=== PATIENT | male | born 1950 | race Caucasian/White ===

== ENCOUNTER → 2020-08-31 07:59 | Outpatient (CLI) | payer OTHER, SELFPAY ==
--- NOTE | ~2020-08-31 | MMUS_ITS ---
EXAMINATION: MM diagnostic mammo BI, US breast BI complete HISTORY: Breast tenderness. TECHNIQUE: Additional 3-D tomosynthesis images of the breasts were performed and synthetic 2-D images were generated. CAD analysis was submitted and interpreted. High resolution bilateral complete breas t ultrasound was performed. COMPARISON: None BREAST PARENCHYMAL COMPOSITION: Breast composed of scattered areas of fibroglandular density. FINDINGS: MAMMOGRAPHIC FINDINGS: There is bilateral gynecomastia. No suspicious masses, calcifications or architectural distortion. ULTRASOUND: Bilateral breast ultrasound: There is hypoechoic soft tissue in the subareolar location bilaterally, consistent with breast buds. No suspicious masses to suggest malignancy. IMPRESSION: 1. Bilateral symmetric gynecomastia. No evidence for malignancy. 2. Recommend follow-up clinical management for gynecomastia. BI-RADS Category 2: Benign finding(s). Reviewed, dictated and finalized at location A. [facility] IMPRESSION: 1. Bilateral symmetric gynecomastia. No evidence for malignancy. 2. Recommend follow-up clinical management for gynecomastia. BI-RADS Category 2: Benign finding(s).
== END ==
PROVIDERS: PCP Internal Medicine; Visit Provider Internal Medicine
DX: N64.4 Mastodynia (principal)
CPT/HCPCS: 76641; 77066

== ENCOUNTER → 2020-10-03 00:20 | Outpatient (CLI) | payer OTHER, SELFPAY ==
[2020-10-03 19:29] LABS: SARS-CoV-2 RNA PCR Negative
== END ==
PROVIDERS: PCP Internal Medicine; Visit Provider Internal Medicine Gastroenterology
DX: Z01.812 Encounter for preprocedural laboratory examination (principal); Z20.822 Contact with and (suspected) exposure to COVID-19
CPT/HCPCS: C9803; U0003; U0005

== ENCOUNTER 2020-10-06 01:11 | Day surgery (SDC) | payer OTHER, SELFPAY ==
[2020-09-27 09:49] VITALS: BMI 25.0
[2020-10-06 08:24] VITALS: BP 112/70; PULSE 81; RESP 18; TEMP 36.5; O2SAT 100; BMI 24.6
[2020-10-06] MEDS: LACTATED RINGERS 1,000 ML 150 ML IV CONT (08:37)
--- NOTE | 2020-10-06 09:35 | P.CONGI_ITS ---
GI Consult Note Consult date/time: 10/06/20 09:35 HPI: Reason for visit is colonoscopy. This very pleasant gentleman seen at the request of the primary physician. Impression: Screening colonoscopy. The patient has a family history colon cancer. Atrial fibrillation. Status post ablation x3. BPH. Recommendation: Colonoscopy. History: This very pleasant gentleman is negative GI review systems. He has a family history of colorectal cancer. He is here for colonoscopy. Physical examination: General: very pleasant patient in no acute distress. HEENT: Head was normocephalic sclerae is clear mouth without masses neck was supple. Heart: Rate rhythm regular without S3 or S4. Lungs: CTA. Abdomen: Soft with no guarding or rigidity. Bowel sounds were active. Neurologic: Cranial nerves 2 through 12 intact. No focal defects. No clonus. Musculoskeletal system: Revealed no joint tenderness or swelling no muscle atrophy. Extremities: Reveal no significant edema. Skin: Warm and dry with normal turgor. Mental status: intact. Patient is alert and oriented. Review of Systems Review of Systems: All systems reviewed & are unremarkable except as noted in HPI and below [facility] Past Medical History Medical History (Updated 08/10/20 @ 08:47 by Orlando Ortiz MD) A-fib Mitral regurgitation Mitral valve prolapse Surgical History Surgical History History of radiofrequency ablation (RFA) procedure for cardiac arrhythmia Family History Family History Mother Cerebrovascular accident Father Carcinoma of colon Family history of lung cancer Sibling Family history of atrial fibrillation 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 Smoking packs per day: 1 Smoking cigarettes per day: 20.0 Years smoked: 3 Smoking pack-years: 3.00 Smoking status: Former smoker Tobacco type: cigarettes Alcohol intake: never Substance use: never Substance use type: does not use Living arrangements: with family Gender identity (if verbalized by the patient): Male Spiritual care concerns: No Agree to blood products: Yes Meds Home Medications and Allergies Home Medications Medication Instructions Recorded Confirmed Type Xarelto 20 mg PO DAILY #30 tablet 06/11/19 10/06/20 Rx tamsulosin 0.4 mg PO 1700 06/11/19 10/06/20 History metoprolol tartrate 25 mg tablet 25 mg PO BID 08/10/20 09/27/20 History Allergies Allergy/AdvReac Type Severity Reaction Status Date / Time No Known Allergies Allergy Verified 10/06/20 08:22 Vital Signs Vital Signs - 24 hr 10/06/20 08:24 Temperature 36.5 C Pulse Rate 81 Respiratory Rate 18 Blood Pressure 112/70 Pulse Oximetry 100
--- NOTE | 2020-10-06 09:43 | P.PNAN_ITS ---
Anes - Initial Pre Proc Eval Procedure: Operation Date: 10/06/20 09:30 Proposed Procedures p Screening Colonoscopy - Sunil Hopkins DO Date/Time: 10/06/20 09:43 Surgeon: Sunil Hopkins DO Pre Op Diagnosis: Neoplasm Screening Patient Data Age: 70 Gender: M Height: 6 ft 1 in Weight: 84.7 kg Last Vital Signs Temp 97.7 F 10/06/20 08:24 Pulse 81 10/06/20 08:24 Resp 18 10/06/20 08:24 BP 112/70 10/06/20 08:24 Pulse Ox 100 10/06/20 08:24 Allergies Allergy/AdvReac Type Severity Reaction Status Date / Time No Known Allergies Allergy Verified 10/06/20 08:22 Home Medications Medication Instructions Recorded Confirmed Type Xarelto 20 mg PO DAILY #30 tablet 06/11/19 10/06/20 Rx tamsulosin 0.4 mg PO 1700 06/11/19 10/06/20 History metoprolol tartrate 25 mg tablet 25 mg PO BID 08/10/20 09/27/20 History Patient hx anesthesia problems: none Family hx anesthesia problems: none [facility] Past Medical History Medical History (Updated 08/10/20 @ 08:47 by Orlando Ortiz MD) A-fib Mitral regurgitation Mitral valve prolapse Surgical History Surgical History History of radiofrequency ablation (RFA) procedure for cardiac arrhythmia Family History Family History Mother Cerebrovascular accident Father Carcinoma of colon Family history of lung cancer Sibling Family history of atrial fibrillation 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 Smoking packs per day: 1 Smoking cigarettes per day: 20.0 Years smoked: 3 Smoking pack-years: 3.00 Smoking status: Former smoker Tobacco type: cigarettes Alcohol intake: never Substance use: never Substance use type: does not use Living arrangements: with family Gender identity (if verbalized by the patient): Male Spiritual care concerns: No Agree to blood products: Yes Anes - Eval Final PreProcedure Day of Procedure 10/06/20 09:43 Patient weight: normal Heart: regular rate and rhythm Lungs: clear to auscultation Airway: Mallampati scale class II Neurological: alert and oriented Last oral intake: >/= 8 hours ASA classification: III Emergent: no Anesthetic plan: proceed Anesthesia type and monitoring: general GIVS and standard monitoring Informed Consent: The patient's anesthetic plan and its attendant risks and benefits were discussed with the patient/family/POA. Questions were solicited and answers provided to the satisfaction of the patient/family/POA.
[2020-10-06 10:13] VITALS: BP 96/55; PULSE 76; RESP 19; O2SAT 100
[2020-10-06 10:23] VITALS: BP 91/53; PULSE 73; RESP 21; O2SAT 99
[2020-10-06 10:33] VITALS: BP 98/60; PULSE 73; RESP 22; O2SAT 100
== END 2020-10-06 10:51 | disposition home or self-care (01) ==
PROVIDERS: PCP Internal Medicine; Visit Provider Internal Medicine Gastroenterology
PROC: 0DJD8ZZ Inspection of Lower Intestinal Tract, Via Natural or Artificial Opening Endoscopic (ICD-10-PCS; CPT 45378; principal; 2020-10-06 09:30)
DX: Z12.11 Encounter for screening for malignant neoplasm of colon (principal); D12.4 Benign neoplasm of descending colon; K57.30 Diverticulosis of large intestine without perforation or abscess without bleeding; I48.20 Chronic atrial fibrillation, unspecified; I34.0 Nonrheumatic mitral (valve) insufficiency; I34.1 Nonrheumatic mitral (valve) prolapse; Z87.891 Personal history of nicotine dependence; N40.0 Benign prostatic hyperplasia without lower urinary tract symptoms; Z80.0 Family history of malignant neoplasm of digestive organs; Z79.02 Long term (current) use of antithrombotics/antiplatelets
CPT/HCPCS: 45380; 88305; C9803; J2704; J7120; U0003; U0005

== ENCOUNTER 2020-11-23 11:58 | Day surgery (SDC) | payer MEDICARE, OTHER, SELFPAY ==
[2020-11-23] VITALS (10 sets, daily range): BP systolic 92–116; BP diastolic 69–90; PULSE 85–152; RESP 16–20; TEMP 36.5; O2SAT 97–100; BMI 25.2
--- NOTE | 2020-11-23 12:26 | ECG_ITS ---
Measurements Intervals [place] Rate: 156 P: IA: 0 QRS: -35 QRSD: 86 T: 73 QT: 274 QTc: 442 Interpretive Statements ATRIAL FIBRILLATION WITH RAPID VENTRICULAR RESPONSE LEFT AXIS DEVIATION BORDERLINE ST ABNORMALITY- ANTERIOR LEADS ABNORMAL ECG Electronically Signed On 11-23-2020 12:48:13 CDT by Zachariah Be D.O.
[2020-11-23 13:00] LABS: Anion Gap 6 mmol/L (8-16); Blood Urea Nitrogen 17 mg/dL (9-20); Calcium 9.1 mg/dL (8.4-10.2); Carbon Dioxide 26 mmol/L (22-30); Chloride 106 mmol/L (98-107); Estimated Glomerular Filt Rate > 60; Glucose 104 mg/dL (75-110); Magnesium 1.9 mg/dL (1.6-2.3); Potassium 4.4 mmol/L (3.4-5.0); Sodium 138 mmol/L (137-145)
--- NOTE | 2020-11-23 13:10 | ECG_ITS ---
Measurements Intervals [place] Rate: 89 P: 78 CT: 235 QRS: -27 QRSD: 94 T: 39 QT: 364 QTc: 445 Interpretive Statements SINUS RHYTHM WITH FIRST DEGREE AV BLOCK BORDERLINE R WAVE PROGRESSION, ANTERIOR LEADS ABNORMAL ECG Electronically Signed On 11-23-2020 14:12:28 CDT by Zachariah Be D.O.
--- NOTE | 2020-11-23 13:30 | PM.IMHP ---
H&P: HPI History of Present Illness Date/Time: 11/23/20 13:30 Chief Complaint: Recurrent AFib RVR, here for cardioversion Narrative: Mr. Chris Reeves this 70-year-old white male followed by Dr. Cortez and Dr. Mendez for his longstanding paroxysmal atrial fibrillation and flutter. Around 10:00 p.m. on Saturday night he felt that he was back in atrial fibrillation. He started his Xarelto Saturday morning and took another dose Saturday night. He came in today for an EKG and indeed he was in AFib with a heart rate of 154. He is here for an elective electrical cardioversion. The patient has had AFib with his 1st cardioversion age 30. He has had 10 or 15 cardioversions and 3 ablations. His last one I believe was on March 2020 and he has done well since. He feels a little breathless with activity but is not having chest pain or dizziness. He ate breakfast around 730 but has been NPO since then. He has not had any particular problems with his past cardioversions. Heart rate otherwise is usually normal or perhaps mildly bradycardic. He has increased his metoprolol 25 mg b.i.d. to 50 mg b.i.d. Review of Systems Constitutional: Constitutional: Denies weakness ENT: Denies epistaxis Cardiovascular: Cardiovascular: Denies chest pain, Denies pedal edema, Denies lightheadedness and Reports palpitations Respiratory: Respiratory: Denies dyspnea and Reports dyspnea on exertion Gastrointestinal: Gastrointestinal: Denies abdominal pain Genitourinary: Genitourinary: Reports no additional male genitourinary complaints Musculoskeletal: Musculoskeletal: Reports no additional musculoskeletal complaints Integumentary/Breasts: Skin/Breast: Denies rash Neurologic: Reports system reviewed and no additional complaints, except as documented Psychiatric: Psychiatric: Reports no additional psychiatric complaints [facility] Past Medical History Medical History (Updated 11/23/20 @ 13:35 by Rosario King MD) A-fib Mitral regurgitation Mitral valve prolapse Surgical History Surgical History History of radiofrequency ablation (RFA) procedure for cardiac arrhythmia Family History Family History Mother Cerebrovascular accident Father Carcinoma of colon Family history of lung cancer Sibling Family history of atrial fibrillation 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 (Updated 11/23/20 @ 13:34 by Rosario King MD) 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: , 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 Smoking packs per day: 1 Smoking cigarettes per day: 20.0 Years smoked: 3 Smoking pack-years: 3.00 Smoking status: Former smoker Tobacco type: cigarettes Alcohol intake: never Substance use: never Substance use type: does not use Gender identity (if verbalized by the patient): Male Spiritual care concerns: No Agree to blood products: Yes Meds Home Medications and Allergies Home Medications Medication Instructions Recorded Confirmed Type Xarelto 20 mg PO DAILY #30 tablet 06/11/19 11/23/20 Rx tamsulosin 0.4 mg PO 1700 06/11/19 11/23/20 History metoprolol tartrate 25 mg tablet 25 mg PO BID 08/10/20 11/23/20 History Allergies Allergy/AdvReac Type Severity Reaction Status Date / Time No Known Allergies Allergy Verified 10/06/20 08:22 Vital Signs Vital Signs - 24 hr 11/23/20 12:45 Temperature 97.7 F Pulse Rate 147 H Respiratory Rate 18 Blood Pressure 106/90 Pulse Oximetry 99 Exam Const: General: comfortable and no acute distress HENMT: Mouth: Yes moist mucous membranes Other: Dentition in good repair Eyes: EOM: EOMs intact bilaterally Neck: Neck: supple and no JVD Resp: Effort & Inspection: normal respiratory effort Auscultation: clear to auscultation bilaterally Cardio: Rate: tachycardic Rhythm: abnormal rhythm irregularly irregular GI: GI Palp: Yes Soft to palpation and No Tendern
--- NOTE | 2020-11-23 13:38 | WPDMODSED ---
Moderate Sedation Note-Pt Data Patient Data Diagnosis: Recurrent atrial fibrillation with rapid ventricular response History of PAF, multiple cardioversions, paroxysmal atrial flutter, and atrial arrhythmia ablation says usually followed by Dr. Cortez and Dr. Mendez. Present Complaint: AFib RVR, symptomatic Procedure to be performed/Plan: Conscious sedation Elective electrical cardioversion Allergies Allergy/AdvReac Type Severity Reaction Status Date / Time No Known Allergies Allergy Verified 10/06/20 08:22 Home Medications Medication Instructions Recorded Confirmed Type Xarelto 20 mg PO DAILY #30 tablet 06/11/19 11/23/20 Rx tamsulosin 0.4 mg PO 1700 06/11/19 11/23/20 History metoprolol tartrate 25 mg tablet 25 mg PO BID 08/10/20 11/23/20 History Current Medications: Active Medications Sodium Chloride (Normal Saline Iv) 1,000 mls @ 30 mls/hr IV CONT .Q24H GIL Sedation/Anesthesia: No previous sedation/anesthesia problems (including family history). 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 Smoking packs per day: 1 Smoking cigarettes per day: 20.0 Years smoked: 3 Smoking pack-years: 3.00 Smoking status: Former smoker Tobacco type: cigarettes Alcohol intake: never Substance use: never Substance use type: does not use Gender identity (if verbalized by the patient): Male Spiritual care concerns: No Agree to blood products: Yes Mod Sed Physical Exam Physical Exam Pre Procedural Exam: Normal: Appearance, Eyes, Ears, Nose, Neck, Throat, Airway, Lungs, Heart Size, Neuro Exam, Abdomen, Extremities and Skin and Variation: Heart Rate (Tachycardic) and Heart Rhythm (Irregular) Hours since solid foods: 6 Hours since liquid intake: 6 Internal Medicine - PN: Obj Da Vital Signs Vital Signs: Vital Signs - 24 hr 11/23/20 12:45 Temperature 97.7 F Pulse Rate 147 H Respiratory Rate 18 Blood Pressure 106/90 Pulse Oximetry 99 Meds/Results Medications: Active Medications Generic Name Dose Route Start Last Admin Trade Name Freq PRN Reason Stop Dose Admin Sodium Chloride 1,000 mls @ 30 mls/hr 11/23/20 12:30 Normal Saline Iv IV CONT .Q24H GIL Labs CBC & Chem 7: 11/23/20 12:45 Labs: Laboratory Results - last 24 hr 11/23/20 12:45 Sodium 138 Potassium 4.4 Chloride 106 Carbon Dioxide 26 Anion Gap 6 L BUN 17 Creatinine 0.90 Estim Creat Clear Calc Not Reportable Estimated GFR > 60 Glucose 104 Calcium 9.1 Magnesium 1.9 ASA Classification/Sedation ASA Classification/Sedation ASA Class: II Emergent: No Risks: Risks, benefits and alternatives explained and patient/family accepted plan for sedation. Patient re-evaluated immediately prior to sedation.
--- NOTE | 2020-11-23 13:56 | PM.OP ---
Procedure Note - Brief Procedure Note - Brief Date of procedure: 11/23/20 Pre-op diagnosis: atrial-fib Post-op diagnosis: same Description of procedure: Successful cardioversion to NSR HR 80's Surgeon: Rosario King MD Complications: No immediate complications Condition: stable Disposition: observation
--- NOTE | 2020-11-23 13:57 | PM.PROC ---
Procedure Note - Detailed Date of procedure: 11/23/20 Pre-op diagnosis: atrial-fib 70-year-old male with a very long history of paroxysmal atrial fibrillation and atrial flutter, status post 10-15 cardioversion is and about 3 ablation. Patient went back and atrial fibrillation on Saturday and started his Xarelto. He remains in AFib RVR and is here for elective electrical cardioversion. Post-op diagnosis: same Procedure performed: Elective electrical cardioversion Description of procedure: Conscious sedation: Assessment: The patient has no history of anesthesia problems. The patient's oropharynx is clear. The patient was deemed to be a good candidate for conscious sedation. The patient had continuous hemodynamic monitoring during the procedure. Start time: 1343 Completion time: 1354 Total conscious sedation time: 11 minutes Medications: Versed 4 mg, fentanyl 100 mcg IV push Trained observer: Paulette Palomares RN Outcome: The patient tolerated the procedure well with no complications. Cardioversion: After informed consent and the above conscious sedation, the patient underwent elective electrical synchronized cardioversion with 200 joules of biphasic energy and converted to normal sinus rhythm, heart rate in the 80s. There were no complications. Anesthesia: other (Consious sedation) Surgeon: Rosario King MD Complications: No immediate complications Condition: stable Disposition: observation Findings: Recommend at least 1 month of Xarelto, probably longer. Follow-up with Dr. Mendez and Dr. Cortez.
--- NOTE | 2020-11-23 14:59 | PC.NURSE ---
1500 - IV d/c'd from left forearm, catheter intact. Taking po food and fluids without nausea or vomiting. Discharge instructions reviewed with patient and with stated understanding. Pt to be discharged via wheelchair to personal vehicle with driving.
== END 2020-11-23 15:10 | disposition home or self-care (01) ==
PROVIDERS: PCP Internal Medicine; Visit Provider Internal Medicine Cardiovascular Disease
PROC: 5A2204Z Restoration of Cardiac Rhythm, Single (ICD-10-PCS; principal; 2020-11-23 13:00)
DX: I48.0 Paroxysmal atrial fibrillation (principal); I34.0 Nonrheumatic mitral (valve) insufficiency; I34.1 Nonrheumatic mitral (valve) prolapse; Z79.01 Long term (current) use of anticoagulants; Z87.891 Personal history of nicotine dependence
CPT/HCPCS: 36415; 80048; 83735; 92960; 93005; J2250; J3010; J7040

== ENCOUNTER 2023-05-22 03:23 | Day surgery (SDC) | payer MEDICARE, SELFPAY ==
[2023-05-21 16:39] VITALS: BMI 25.1
[2023-05-22] VITALS (13 sets, daily range): BP systolic 80–141; BP diastolic 57–100; PULSE 67–141; RESP 14–20; TEMP 36.2; O2SAT 100; BMI 25.9
--- NOTE | 2023-05-22 07:00 | ECG_ITS ---
Measurements Intervals [place] Rate: 77 P: 75 DC: 258 QRS: -34 QRSD: 99 T: 39 QT: 375 QTc: 425 Interpretive Statements SINUS RHYTHM WITH FIRST DEGREE AV BLOCK LEFT AXIS DEVIATION CANNOT RULE OUT SEPTAL INFARCT, AGE INDETERMINATE INFERIOR INFARCT, AGE INDETERMINATE ABNORMAL ECG COMPARED TO ECG 05/22/2023 07:28:07 SINUS RHYTHM NOW PRESENT FIRST DEGREE AV BLOCK NOW PRESENT Electronically Signed On 05-22-2023 10:39:33 [employer] by Zachariah Be D.O.
[2023-05-22 07:57] LABS: Anion Gap 9 mmol/L (8-16); Blood Urea Nitrogen 27 mg/dL (9-20); Calcium 9.1 mg/dL (8.4-10.2); Carbon Dioxide 27 mmol/L (22-30); Chloride 103 mmol/L (98-107); Estimated CRCL calculation 63 ml/min; Estimated Glomerular Filt Rate > 60; Glucose 99 mg/dL (65-110); Magnesium 2.2 mg/dL (1.6-2.3); Potassium 4.7 mmol/L (3.4-5.0); Sodium 139 mmol/L (137-145)
--- NOTE | 2023-05-22 08:30 | ECG_ITS ---
Measurements Intervals [place] Rate: 92 P: ME: 0 QRS: -33 QRSD: 105 T: 45 QT: 354 QTc: 440 Interpretive Statements ECTOPIC ATRIAL RHYTHM FREQUENT ATRIAL PREMATURE COMPLEXES LEFT AXIS DEVIATION CONSIDER INFERIOR INFARCT, AGE INDETERMINATE BASELINE ARTIFACT- I, II, AVR ABNORMAL ECG COMPARED TO ECG 11/23/2020 13:59:04 ECTOPIC ATRIAL RHYTHM NOW PRESENT LEFT-AXIS DEVIATION NOW PRESENT Electronically Signed On 05-22-2023 8:16:30 REVIVAL CLERK by Zachariah Be D.O.
--- NOTE | 2023-05-22 09:18 | PM.IMHP ---
H&P: HPI History of Present Illness Date/Time: 05/22/23 09:18 Chief Complaint: Atrial fibrillation Narrative: 72-year-old with atrial fibrillation. Has no chest pain but is here today for outpatient elective cardioversion Review of Systems Review of Systems: All systems reviewed & are unremarkable except as noted in HPI and below Cardiovascular: Cardiovascular: Denies chest pain Respiratory: Respiratory: Denies dyspnea Gastrointestinal: Gastrointestinal: Denies abdominal pain and Denies nausea PMFSH Past Medical History Medical History A-fib Breast enlargement Lyme disease with erythema migrans lesion 5 cm or greater in diameter Mitral regurgitation Mitral valve prolapse Nipple pain Surgical History Surgical History History of radiofrequency ablation (RFA) procedure for cardiac arrhythmia Family History Family History Mother Cerebrovascular accident Father Carcinoma of colon Family history of lung cancer Sibling Family history of atrial fibrillation 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: , 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 Smoking packs per day: 1 Smoking cigarettes per day: 20.0 Years smoked: 3 Smoking pack-years: 3.00 Smoking status: Never smoker Tobacco type: cigarettes Smoking end date: 07/20/79 Alcohol intake: current Drinks per week: 7 Alcohol use details: social Substance use: current Substance use type: does not use Lack of Transportation: No Lack of Food: Never True Current Housing: I Have Housing Concerned About Future Housing: No Difficulty Paying Gas/Electric Bills: No Difficulty Paying for Meds: No Currently Unemployed: No Education: Master's Degree or Higher Difficulty w/ Childcare or Family Care: No Living arrangements: alone Gender identity (if verbalized by the patient): Male Spiritual care concerns: No Agree to blood products: Yes Meds Home Medications and Allergies Home Medications Medication Instructions Recorded Confirmed Type metoprolol tartrate 25 mg tablet 50 mg PO BID #120 tabs 11/23/20 05/22/23 Rx tamsulosin 0.4 mg capsule 0.8 mg PO 1700 12/08/20 05/22/23 History rivaroxaban 20 mg tablet (Xarelto) 20 mg PO DAILY 05/22/23 05/22/23 History Allergies Allergy/AdvReac Type Severity Reaction Status Date / Time No Known Allergies Allergy Verified 05/22/23 07:19 Vital Signs Vital Signs - 24 hr 05/22/23 07:39 Temperature 36.2 C L Pulse Rate 93 Respiratory Rate 20 Blood Pressure 113/62 Pulse Oximetry 100 Oxygen Delivery Room Air Exam Narrative: Awake alert oriented Const: General: comfortable HENMT: Face/Nose/Sinus: Normal nares present Eyes: Sclera: sclerae normal Neck: Neck: supple and no JVD Chest: Other: No reproducible chest wall pain to palpation Resp: Effort & Inspection: normal respiratory effort Cardio: Rate: regular rate Rhythm: abnormal rhythm irregularly irregular GI: GI Palp: Yes Soft to palpation Skin: General skin exam: normal color Neuro: Speech: normal speech Extrem: General: normal to inspection Psych: Mental Status: mental status grossly normal H&P: Results Labs Labs: [facility] 05/22/23 07:34 Sodium 139 Potassium 4.7 Chloride 103 Carbon Dioxide 27 BUN 27 H D Creatinine 1.10 Glucose 99 Calcium 9.1 Assessment and Plan Assessment and plan (1) A-fib: Qualifiers: Atrial fibrillation type: paroxysmal Qualified Code(s): I48.0 - Paroxysmal atrial fibrillation Code(s): I48.91 - Unspecified atrial fibrillation Status: Acute Assessment and Plan: Plan for outpatient elective cardioversion with CARLOZ
--- NOTE | 2023-05-22 09:20 | WPDMODSED ---
Moderate Sedation Note-Pt Data Patient Data Diagnosis: Atrial fibrillation Present Complaint: Atrial fibrillation Procedure to be performed/Plan: 1. Multiplanar transesophageal echocardiography with pulse wave and color-flow Doppler 2. moderate sedation 3. elective electrical cardioversion Allergies Allergy/AdvReac Type Severity Reaction Status Date / Time No Known Allergies Allergy Verified 05/22/23 07:19 Home Medications Medication Instructions Recorded Confirmed Type metoprolol tartrate 25 mg tablet 50 mg PO BID #120 tabs 11/23/20 05/22/23 Rx tamsulosin 0.4 mg capsule 0.8 mg PO 1700 12/08/20 05/22/23 History rivaroxaban 20 mg tablet (Xarelto) 20 mg PO DAILY 05/22/23 05/22/23 History Current Medications: Active Medications Sodium Chloride (Normal Saline Iv) 1,000 mls @ 30 mls/hr IV CONT .Q24H GIL Sedation/Anesthesia: No previous sedation/anesthesia problems (including family history). 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 Smoking packs per day: 1 Smoking cigarettes per day: 20.0 Years smoked: 3 Smoking pack-years: 3.00 Smoking status: Never smoker Tobacco type: cigarettes Smoking end date: 07/20/79 Alcohol intake: current Drinks per week: 7 Alcohol use details: social Substance use: current Substance use type: does not use Lack of Transportation: No Lack of Food: Never True Current Housing: I Have Housing Concerned About Future Housing: No Difficulty Paying Gas/Electric Bills: No Difficulty Paying for Meds: No Currently Unemployed: No Education: Master's Degree or Higher Difficulty w/ Childcare or Family Care: No Living arrangements: alone Gender identity (if verbalized by the patient): Male Spiritual care concerns: No Agree to blood products: Yes Mod Sed Physical Exam Physical Exam Pre Procedural Exam: Normal: Appearance, Eyes, Ears, Nose, Neck, Throat, Airway, Lungs, Heart Size, Heart Rate, Neuro Exam, Abdomen, Extremities and Skin and Variation: Heart Rhythm (Irregular irregular) Hours since solid foods: 12 Hours since liquid intake: 12 Mallampati Classification: class II Internal Medicine - PN: Obj Da Vital Signs Vital Signs: Vital Signs - 24 hr 05/22/23 07:39 Temperature 36.2 C L Pulse Rate 93 Respiratory Rate 20 Blood Pressure 113/62 Pulse Oximetry 100 Oxygen Delivery Room Air Meds/Results Medications: Active Medications Generic Name Dose Route Start Last Admin Trade Name Freq PRN Reason Stop Dose Admin Sodium Chloride 1,000 mls @ 30 mls/hr 05/22/23 07:00 Normal Saline Iv IV CONT .Q24H GIL Labs 05/22/23 07:34 Labs: Laboratory Results - last 24 hr 05/22/23 07:34 Sodium 139 Potassium 4.7 Chloride 103 Carbon Dioxide 27 Anion Gap 9 BUN 27 H D Creatinine 1.10 Estim Creat Clear Calc 63 Estimated GFR > 60 Glucose 99 Calcium 9.1 Magnesium 2.2 ASA Classification/Sedation ASA Classification/Sedation ASA Class: II Emergent: No Risks: Risks, benefits and alternatives explained and patient/family accepted plan for sedation. Patient re-evaluated immediately prior to sedation.
--- NOTE | 2023-05-22 09:44 | WPDTECDV ---
CARLOZ with Cardioversion Date of procedure: 05/22/23 Procedure Type: 1. Multiplanar transesophageal echocardiography with color flow and pulse wave Doppler 2. Electrical cardioversion 3. Moderate sedation Diagnosis: Atrial fibrillation Indications: Atrial fibrillation Description of Procedure: After discussing the risks, benefits alternatives of the procedure the patient agreeable via verbal and written informed consent. Risks discussed included esophageal rupture perforation, need for surgery, , bleeding, pain, infection, adverse reaction to anesthesia, stroke, skin irritation or burn, shocking into more problematic heart rhythm. After establishing continuous telemetry monitoring, pulse oxygenation and serial blood pressure assessments time-out was taken the procedure was started Procedure start time 9:25 a.m. Procedure stop time 9:44 a.m. Medications used: Lidocaine spray to the hypopharynx x2 for topical anesthetic. A total of 5 mg of Versed and 125 mcg of fentanyl given in divided dosages Medications were administered and patient was monitored by Isreal Ruiz RN Complications: None Blood loss: None Sedation: As detailed above Findings: CARLOZ: Normal left ventricular size and function ejection fraction of 65%. Mild LVH. Moderate to severe left atrial enlargement. Left atrial appendage is free of mass or thrombus. Pulse wave velocities are estimated between 75 and 100 cm/s. No pericardial effusion. Aortic root measured 3.1 cm. Atrial septum was intact without color flow evidence of shunting. Mild tricuspid regurgitation but with a normal valve. There is moderate mitral regurgitation. Mitral valve appears normal. The pulmonic valve is normal with trivial pulmonic insufficiency. The aortic valve is trileaflet minimally sclerotic. No significant aortic insufficiency. Normal right ventricular size and function. Normal right atrial size. Electrical cardioversion: Atrial fibrillation was confirmed 150 joules of biphasic synchronized energy was utilized to restore sinus rhythm from AFib. Conclusion: 1. Normal left ventricular size and function ejection fraction 65%, mild left ventricle hypertrophy. 2. Moderate to severe left atrial enlargement 3. Left atrial appendage is normal without mass or thrombus 4. Ihqm-dj-jzzmpsck mitral regurgitation 5. Mild tricuspid regurgitation 6. Successful bahai of sinus rhythm from atrial fibrillation use 150 joules of biphasic synchronized energy 7. Moderate sedation
== END 2023-05-22 11:31 | disposition home or self-care (01) ==
PROVIDERS: PCP Internal Medicine; Visit Provider Internal Medicine Cardiovascular Disease
PROC: (CPT 93312; principal; 2023-05-22 08:30)
PROC: 5A2204Z Restoration of Cardiac Rhythm, Single (ICD-10-PCS; 2023-05-22 08:30)
DX: I48.0 Paroxysmal atrial fibrillation (principal); I44.0 Atrioventricular block, first degree; I34.0 Nonrheumatic mitral (valve) insufficiency; I07.1 Rheumatic tricuspid insufficiency; R94.31 Abnormal electrocardiogram [ECG] [EKG]; R93.1 Abnormal findings on diagnostic imaging of heart and coronary circulation; F17.210 Nicotine dependence, cigarettes, uncomplicated; Z79.01 Long term (current) use of anticoagulants; Z86.79 Personal history of other diseases of the circulatory system; Z82.49 Family history of ischemic heart disease and other diseases of the circulatory system; Z80.1 Family history of malignant neoplasm of trachea, bronchus and lung; Z80.0 Family history of malignant neoplasm of digestive organs
CPT/HCPCS: 36415; 80048; 83735; 92960; 93312; 93320; 93325; J2250; J3010; J7030

== ENCOUNTER 2024-05-04 01:33 | Day surgery (SDC) | payer MEDICARE, SELFPAY ==
[2024-05-01 17:12] VITALS: BMI 25.1
[2024-05-04] VITALS (7 sets, daily range): BP systolic 103–123; BP diastolic 68–83; PULSE 67–111; RESP 14–20; TEMP 36.4; O2SAT 97–100
--- NOTE | 2024-05-04 07:00 | ECG_ITS ---
Test Date: 2024-05-04 07:20:09 Measurements Intervals [place] Rate: 100 P: 0 [place]: 0 QRS: -32 QRSD: 85 T: 58 QT: 344 QTc: 444 Interpretive Statements ATRIAL FIBRILLATION WITH RAPID VENTRICULAR RESPONSE LEFT AXIS DEVIATION CONSIDER INFERIOR INFARCT, AGE INDETERMINATE ABNORMAL ECG No previous ECG available for comparison Electronically Signed On 05-04-2024 08:12:05 GRAIN BU[employer]ER by Zachariah Be D.O.
[2024-05-04 08:14] LABS: Anion Gap 9 mmol/L (4-12); Blood Urea Nitrogen 21 mg/dL (9-20); Calcium 9.2 mg/dL (8.4-10.2); Carbon Dioxide 25 mmol/L (22-30); Chloride 104 mmol/L (98-107); Estimated CRCL calculation 68 ml/min; Estimated Glomerular Filt Rate > 60; Glucose 102 mg/dL (65-110); Magnesium 2.1 mg/dL (1.6-2.3); Potassium 4.5 mmol/L (3.4-5.0); Sodium 138 mmol/L (137-145)
--- NOTE | 2024-05-04 08:28 | P.SEDATION_ITS ---
Moderate Sedation Note-Pt Data Patient Data Allergies Allergy/AdvReac Type Severity Reaction Status Date / Time No Known Allergies Allergy Verified 05/01/24 17:08 Home Medications Medication Instructions Recorded Confirmed Type tamsulosin 0.4 mg capsule 0.8 mg PO 1700 12/08/20 05/01/24 History metoprolol tartrate 50 mg tablet 75 mg PO BID #45 tabs 07/17/23 05/01/24 Rx rivaroxaban 20 mg tablet (Xarelto) 20 mg PO DAILY 07/17/23 05/01/24 History Sedation/Anesthesia: No previous sedation/anesthesia problems (including family history). 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 Smoking packs per day: 0.5 Smoking cigarettes per day: 10.0 Years smoked: 7.6 Smoking pack-years: 3.80 Smoking status: Former smoker Tobacco type: cigarettes Second hand tobacco smoke exposure: No Smoking end date: 07/01/78 Alcohol intake: current Drinks per week: 7 Alcohol use details: SOCIAL Substance use: never Substance use type: does not use Lack of Transportation: No Lack of Food: Never True Current Housing: I Have Housing Concerned About Future Housing: No Difficulty Paying Gas/Electric Bills: No Difficulty Paying for Meds: No Currently Unemployed: No Education: Master's Degree or Higher Difficulty w/ Childcare or Family Care: No Living arrangements: with family Additional living arrangements comments: LIVES W/ , [place] Gender identity (if verbalized by the patient): Male Sexual Orientation (if Verbalized by the Patient): Straight or Heterosexual Spiritual care concerns: No Agree to blood products: Yes Mod Sed Physical Exam Physical Exam Pre Procedural Exam: Normal: Appearance and Eyes and Variation: Heart Rhythm (atrial fibrillation) Hours since solid foods: 10 Hours since liquid intake: 10 Mallampati Classification: class II Internal Medicine - PN: Obj Da Vital Signs Vital Signs: Vital Signs - 24 hr 05/04/24 07:30 05/04/24 08:15 05/04/24 08:20 Temperature 36.4 C L Pulse Rate 100 111 H 70 Respiratory Rate 16 16 18 Blood Pressure 104/75 104/77 123/68 Pulse Oximetry 98 100 100 Oxygen Delivery Room Air Nasal Cannula Nasal Cannula Oxygen Flow Rate 2 2 05/04/24 08:25 Temperature Pulse Rate 71 Respiratory Rate 14 Blood Pressure 119/83 Pulse Oximetry 100 Oxygen Delivery Nasal Cannula Oxygen Flow Rate 2 Labs 05/04/24 07:28 Labs: Laboratory Results - last 24 hr 05/04/24 07:28 Sodium 138 Potassium 4.5 Chloride 104 Carbon Dioxide 25 Anion Gap 9 BUN 21 H Creatinine 1.00 Estim Creat Clear Calc 68 Estimated GFR > 60 Glucose 102 Calcium 9.2 Magnesium 2.1 ASA Classification/Sedation ASA Classification/Sedation ASA Class: III Emergent: No Risks: Risks, benefits and alternatives explained and patient/family accepted plan for sedation. Patient re-evaluated immediately prior to sedation.
--- NOTE | 2024-05-04 08:28 | WPDHPUPDATE1 ---
History and Physical Update Update Date/Time: 05/04/24 08:28 History and Physical has been reviewed, including an updated exam of the patient. There are NO changes in the patient's condition. Risks, benefits, and alternatives have been discussed and questions answered. Patient agrees to proceed with procedure.
--- NOTE | 2024-05-04 08:29 | P.PCNCVR_ITS ---
Cardioversion Cardioversion Date of procedure: 05/04/24 Procedure: 73-year-old man with history of paroxysmal atrial fibrillation here for cardioversion. He endorses that he has been taking Xarelto every evening and has not missed any doses. Pre-op diagnosis: Paroxysmal atrial fibrillation Post-op diagnosis: Same Description of procedure: Patient was given 2 mg Versed and 100 mcg fentanyl by MILTON Jorgensen at 0820 under my direct supervision. Once patient was fully sedated, his ECG was reviewed showing atrial fibrillation and his rhythm on clinical research monitor showed atrial fibrillation as well. At this point he received 200 joule biphasic cardioversion. His atrial fibrillation successfully terminated with no significant pauses with denominational of sinus rhythm. There were initially frequent PVCs that have now subsided.
--- NOTE | 2024-05-04 08:45 | ECG_ITS ---
Test Date: 2024-05-04 08:23:24 Measurements Intervals [place] Rate: 68 P: 75 [place]: 269 QRS: -38 QRSD: 97 T: 37 QT: 403 QTc: 432 Interpretive Statements SINUS RHYTHM WITH FIRST DEGREE AV BLOCK WITH OCCASIONAL VENTRICULAR PREMATURE COMPLEXES LEFT AXIS DEVIATION CANNOT R/O SEPTAL INFARCT, AGE INDETERMINATE INFERIOR INFARCT, AGE INDETERMINATE BASELINE ARTIFACT- II, III, AVF ABNORMAL ECG Compared to ECG 05/04/2024 07:20:09 SINUS RHYTHM NOW PRESENT Electronically Signed On 05-04-2024 08:42:43 DIRECTOR EPIDEMIOLOGY by Zachariah Be D.O.
== END 2024-05-04 09:33 | disposition home or self-care (01) ==
PROVIDERS: PCP Nurse Practitioner; Visit Provider Internal Medicine
PROC: 5A2204Z Restoration of Cardiac Rhythm, Single (ICD-10-PCS; principal; 2024-05-04 08:30)
DX: I48.0 Paroxysmal atrial fibrillation (principal); I34.0 Nonrheumatic mitral (valve) insufficiency; R94.31 Abnormal electrocardiogram [ECG] [EKG]; Z98.890 Other specified postprocedural states; Z87.891 Personal history of nicotine dependence; Z86.79 Personal history of other diseases of the circulatory system; Z80.0 Family history of malignant neoplasm of digestive organs; Z80.1 Family history of malignant neoplasm of trachea, bronchus and lung; Z82.49 Family history of ischemic heart disease and other diseases of the circulatory system
CPT/HCPCS: 36415; 80048; 83735; 92960; J2250; J3010

== ENCOUNTER 2025-04-06 08:55 | Outpatient (CLI) | payer MEDICARE, SELFPAY ==
--- NOTE | ~2025-04-06 | US_ITS ---
US abdomen limited Indication: R10.9 - Unspecified abdominal pain Comparison: None Technique: Chacon-scale and color Doppler images were obtained. Findings: LIVER: Unremarkable, liver contours intact, no lesions. Normal echogenicity. . GALLBLADDER/BILIARY: Cholelithiasis, minimal wall thickening 4 mm but no pericholecystic fluid. CBD 7 mm. [place] sign negative. PANCREAS: Pancreas limited by bowel gas. Right Kidney: Right kidney 11.3 x 4.3 x 5 cm, normal. Impression: 1. Cholelithiasis. Reviewed, dictated and finalized at location P. Impression: 1. Cholelithiasis.
== END 2025-04-06 08:56 | disposition home or self-care (01) ==
LOC: GOSHIMG 08:56
PROVIDERS: PCP Nurse Practitioner; Visit Provider Nurse Practitioner
DX: R10.9 Unspecified abdominal pain (principal); K80.20 Calculus of gallbladder without cholecystitis without obstruction
CPT/HCPCS: 76705

== ENCOUNTER 2025-05-12 08:41 | Outpatient (CLI) | payer MEDICARE, SELFPAY ==
--- OUTSIDE RECORDS SUMMARY | 2025-05-12 08:58 | XMS_ITS | Clinical Summary ---
Author Organization [facility] Address [address] [place] [address] Care Team Providers Care Therapy Aide Name Role Phone Unavailable Primary Care Provider Unavailabl e Source Comments [facility],non-owned Affiliates and Associated Physician Practices is amultiple site organization consisting of ambulatory clinics and hospital sitesin [place], [place], [place] and [place]. This disclosure is being madepursuant to the Care Everywhere program and may not contain all information available regarding this patient. Last updated 18.[facility] 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 Tobacco Use Types Packs/Day Years Used Date Smoking Tobacco: Never Assessed Sex and Gender Information Value Date Recorded Sex Assigned at Not on file Legal Sex Male 6:34 PM VINYL [employer] Gender Identity Not on file Sexual Orientation Not on file Plan of Treatment Health Maintenance Due Date Last Done Comments COLOGUARD (AGES 45-75) - COL ON CA SCREENING 1952 COLON MONITORING 1952 COLONOSCOPY - COLON CA SCREENING 1952 CT COLONOGRAPHY - COLON CA SCREENING 1952 Colorectal Cancer Screening 1952 FIT - COLON CA SCREENING 1952 FLEX SIG - COLON CA SCREENING 1952 LIPID TESTING 1952 MEDICARE AWV 12 MONTHS 1952 HEPATITIS C SCREENING 07/31/1970 DTAP/TDAP/TD VACCINES (1 - Tdap) 1971 PNEUMOCOCCAL VACCINE 50+ (1 of 1 - PCV) 2002 ZOSTER VACCINE (1 of 2) 2002 DEPRESSION SCREENING 07/01/2024 COVID-19 VACCINE ( - 2023-2 5 season) 2025 INFLUENZA VACCINE (#1) 2025 Respiratory Syncytial Virus (RSV) Vaccine Pt: or over 60 yrs (1 - 1-dose 75+ series) 2027 HEPATITIS B VACCINE Aged Out No longe r eligible based on patient's age to complete this topic HIB VACCINE Aged Out No longer eligi ble based on patient's age to complete this topic HPV VACCINE Aged Out No longer eligi ble based on patient's age to complete this topic MENINGOCOCCAL (Group B) VACC INE SHARED DECISION-MAKING Aged Out No longer eligibl e based on patient's age to complete this topic MENINGOCOCCAL GROUPS A/C/Y/W VACCINE Aged Out No longer eligible b ased on patient's age to complete this topic Insurance [facility] MEDIC[facility] AET
--- OUTSIDE RECORDS SUMMARY | 2025-05-12 08:58 | XMS_ITS | Clinical Summary ---
Author Organization [facility] [place] [address] Address [address] [place] [address] Care Team Providers Care Game Protector Name Role Phone Dominick Reid DO Primary Care Provider [phone] Allergies No known active allergies Medications tamsulosin (FLOMAX) 0.4 mg extended release capsule Take 1 capsule (0.4 mg total) by mouth daily 30 capsule 10/07/2019 Active rivaroxaban (XARELTO) 20 mg tablet Take 1 tablet (20 mg total) by mouth nightly 30 tablet 6 04/20/2024 Active metoprolol tartrate (LOPRESSOR) 50 mg immediate release tablet TAKE 1.5 TABLETS BY MOUTH 2 TIMES A DAY. 270 tablet 2 12/31/2024 Active Active Problems Problem Noted Date Diagnosed Date History of cardioversion 12/22/2020 Atrial flutter 10/08/2019 Assessment & Plan (05/03/2021 1:42 PM CDT): Persistent atrial fibrillation/atypical atrial flutter, status post catheter ablation, most recently in March 2020. The patient experienced recurrence of atrial flutter and underwent cardioversion in November. He is doing well at present with low-dose beta-obdulia therapy. We will continue this med. Assessment & Plan (10/22/2020 9:47 AM CDT): Persistent atrial fibrillation/atypical atrial flutter. During his most recent ablation, performed in 03/2020, presenting atrial flutter was mapped to a complex atypical circuit involving the low lateral RA. Catheter ablation across the identifiable critical isthmus resulted in termination of atrial arrhythmia. The patient has not experienced recurrence in the time since. We will continue to monitor and follow closely, and manage new / recurrent arrhythmia expectantly. Assessment & Plan (04/04/2020 4:11 PM CDT): Atypical atrial flutter, symptomatic. The patient has undergone previous ablation procedures, and is scheduled to undergo repeat ablation Saturday of next week. We again discussed the risks and benefits of the procedure, as well as the mapping and ablation strategy. I will plan on discontinuing the patient's amiodarone at the time of his procedure. Assessment & Plan (02/05/2020 12:02 PM CDT): The patient is status post repeat ablation for recurrent persistent atrial fibrillation. In the time since his ablation, he has had multiple recurrences of atypical atrial flutter. He is presently on amiodarone, but I do not want him to be exposed to this medication in the long-term. Therefore, we will plan on discontinuing in 2 weeks (6 months post ablation). If he experiences recurrence, I would favor repeat EP study with mapping and ablation of his atrial tachycardia, rather than re-initiation of amiodarone. S/P ablation of atrial flutter 10/08/2019 S/P ablation of atrial fibrillation 01/27/2017 Anticoagulation management encounter 01/27/2017 Assessment & Plan (05/02/2022 11:59 AM CDT): Chads Vasc score is 1. At this level of risk, he does not require anticoagulation. The patient will follow-up with me in 12 months for an office visit and twelve- lead ECG. Assessment & Plan (05/03/2021 1:43 PM CDT): The patient has a DBU6KC3-CQUo score of 1 (annualized risk of stroke 1%). At this level of risk, he does not require long-term anticoagulation for thromboprophylaxis. The patient will follow-up with me in 12 months for an office visit and twelve- lead ECG. Assessment & Plan (10/22/2020 9:47 AM CDT): Chads Vasc score is 1. He may discontinue anticoagulation at this time. The patient will follow-up with me in 6 months for an office visit and twelve- lead ECG. Assessment & Plan (04/04/2020 4:11 PM CDT): The patient has a NXS5ZP1-UFXl score of 1 (annualized risk of stroke 1%). Given our plans for catheter ablation, I recommended that the patient continue anticoagulation. Assessment & Plan (02/05/2020 12:04 PM CDT): The patient has a NEE8OC0-QRAe score of 1 (annualized risk of stroke 1%). I have recommended that he remain anticoagulated during this. In which repeat ablation and repeat cardioversion are possible. In the long-term, he may not require continued use of rivaroxaban. The patient will follow-up with me in 1-2 months for an office visit and twelve- lead ECG. Assessment & Plan (12/19/2019 11:40 AM CDT): The patient has a chads Vasc score of 1. However, because of the possibility of need for recurrent cardioversion, I recommended that he remain anticoagulated at this point. The patient will follow-up with me in 3 months for an office visit and twelve- lead ECG. Assessment & Plan (08/06/2019 12:57 PM FAILURE ANALYSIS TECHNICIAN): The patient has a CXE8NJ8-YOJf score of 1 (annualized risk of stroke 1.2 %). I have recommended that he remain anticoagulated for thromboprophylaxis given his recent cardioversion and plans for ablation. Assessment & Plan (11/05/2017 10:12 AM CDT): The patient has a TMC6EY5-ZLGd score of 1 (annualized risk of stroke 1%). The patient would like to remain off anticoagulation. The patient will follow-up with me in 12 months for an office visit and twelve- lead ECG. Assessment & Plan (01/27/2017 10:50 AM CDT): The patient has a TZF1GA5-ZQUe score of 0 (annualized risk of stroke approximately 0%). The patient will continue on aspirin, and we will re-evaluate the need for anticoagulation in the future. The patient will follow-up with me in 6 months for an office visit and twelve- lead ECG. Chronic anticoagulation 12/14/2016 Mitral valve prolapse 06/27/2016 Overview (10/04/2016): Mitral valve prolapse Non-rheumatic mitral regurgitation 11/08/2015 Overview (10/04/2016): Non-rheumatic mitral regurgitation Persistent atrial fibrillation 09/03/2014 Overview (10/05/2016): A Fib Assessment & Plan (11/16/2024 9:23 AM CDT): The patient is five year status post repeat ablation for atrial fibrillation, doing well. Maintaining sinus rhythm with low-dose metoprolol. No changes to management today The patient has a CJL1AG4-BWEm score of 2. I have therefore recommended continued anticoagulation for thromboprophylaxis. The patient will follow-up with me in 6 months for an office visit and twelve- lead ECG. Assessment & Plan (04/30/2024 1:05 PM CDT): Four years status post repeat ablation, with recurrence of atrial fibrillation. He is scheduled for cardioversion next week. If he experiences early recurrence, I would consider repeat catheter ablation. I asked him to contact me if this were the case (Following his last cardioversion, the patient maintained sinus rhythm for a year). He is presently doing well with metoprolol. The patient will follow-up with me in 6 months for an office visit and twelve-lead ECG. Assessment & Plan (04/25/2023 8:48 AM CDT): The patient is status post ablation for atrial fibrillation, doing well. Maintaining sinus rhythm with metoprolol. No changes to management at this time. He is experiencing only infrequent, brief episodes which is a considerable improvement. The patient has a FRH1VK8-DFJg score of 1. At this level of risk, anticoagulation is not compulsory. The patient will follow-up with me in 12 months for an office visit and twelve- lead ECG. Assessment & Plan (05/02/2022 11:59 AM CDT): Persistent atrial fibrillation / atypical atrial flutter, status post catheter ablation, most recently in March 2020. The patient has experienced recurrence, most recently in November 2020. Over the last year, he has been in sinus rhythm without antiarrhythmic drug therapy. For now, we will continue low-dose beta-obdulia therapy. Assessment & Plan (12/19/2019 11:39 AM CDT): Persistent atrial fibrillation, status post catheter ablation. 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 The patient had recurrence, and required cardioversion twice. He is presently maintaining sinus rhythm of low-dose amiodarone. For now, he will continue on amiodarone for an additional 3 months. At that point we will plan on discontinuing the medication. Assessment & Plan (08/06/2019 12:56 PM FAILURE ANALYSIS TECHNICIAN): Recurrent persistent atrial fibrillation that is symptomatic and resistant to sotalol. The patient recently underwent cardioversion to sinus rhythm, and he has been back on anticoagulation since. He is status post ablation in 2014. Previously, we discussed repeat ablation, and the patient would like to undergo the procedure. We again discussed the rationale for atrial fibrillation ablation, including the steps involved in ablation. I detailed the risks of the procedure, including vascular injury/hematoma, myocardial injury/perforation, stroke, myocardial infarction, pulmonary vein stenosis, thermal esophageal injury, and . I estimated a 70% chance of freedom from long-term atrial arrhythmia, and the patient understands that occasionally a second procedure is necessary. Prior to ablation, I recommended that the patient undergo CT scanning with reconstruction of the left atrium, to assist with mapping and ablation. My office will make the appropriate arrangements. From: July, Noemi LS, John JS, Carlotta H, Srinivas WOLF, Merrick JE, Ronit BAUDILIO, Alesia PT, Karen SERRANO, Field DANIELSON, Devante KT, Julio RL, Yosi WG, Cornelio PJ, Johana CM, Ethel CW. 2014 AHA/ACC/HRS guideline for the management of patients with atrial fibrillation: a report of the [place] College of Cardiology/[place] Heart Association Task Force on Practice Guidelines and the Heart Rhythm Society. J Am [place] Cardiol 2014. 6.3. AF Catheter Ablation to Maintain Sinus Rhythm: Recommendations Class IIa AF catheter ablation is reasonable for selected patients with symptomatic persistent AF refractory or intolerant to at least 1 class I or III antiarrhythmic medication (388, [phone]). (Level of Evidence: A) Assessment & Plan (11/05/2017 10:11 AM CDT): Patient has a history of persistent atrial fibrillation. He is status post ablation, but has experienced recurrence on several occasions. Presently, he is doing well with sotalol. He would like to continue on this therapy. He understands that repeat ablation is an option if he continues to experience recurrence. Assessment & Plan (01/27/2017 10:49 AM CDT): The patient is now 2 and half years status post ablation for persistent atrial fibrillation. He has experienced several episodes of recurrence requiring cardioversion, but is, at present, maintaining sinus rhythm on sotalol. For now, the patient would like to continue the current strategy. He understands that if he experiences additional recurrence, repeat ablation can be considered. Resolved Problems Problem Noted Date Diagnosed Date Resolved Date Encounter for monitoring sotalol therapy 06/21/2017 12/22/2020 half-way current use of antiarrhythmic drug 7 12/22/2020 Assessment & Plan (02/05/2020 12:02 PM CDT): As above, amiodarone was used to suppress his atrial arrhythmia during the 6 months following ablation. It is my hope that we will be able to discontinue this medication. Assessment & Plan (12/19/2019 11:39 AM CDT): 12-lead ECG today does not demonstrate any changes that would prohibit continued use of amiodarone. We will continue the patient on the same dose and schedule. As long as the patient continues on this medication, an ECG should be performed at least every 6 months to monitor for toxicity. Liver function tests and thyroid function tests should be performed at least every 6 months, an assessment of pulmonary function will be needed yearly. It is my intention to limit the patient's exposure to this medication, as above. Assessment & Plan (08/06/2019 12:56 PM FAILURE ANALYSIS TECHNICIAN): 12-lead ECG today does not demonstrate any changes that would prohibit continued use of sotalol. We will continue the patient on the same dose and schedule. As long as the patient continues on this medication, an ECG should be performed at least every 6 months to monitor for toxicity. Assessment & Plan (11/05/2017 10:11 AM CDT): 12-lead ECG today does not demonstrate any changes that would prohibit continued use of sotalol. We will continue the patient on the same dose and schedule. As long as the patient continues on this medication, an ECG should be performed at least every 6 months to monitor for toxicity. Assessment & Plan (01/27/2017 10:50 AM CDT): 12-lead ECG today does not demonstrate any changes that would prohibit continued use of sotalol. We will continue the patient on the same dose and schedule. As long as the patient continues on this medication, an ECG should be performed at least every 6 months to monitor for toxicity. Mitral valve insufficiency 06/27/2016 0 01/16/2023 Overview (10/04/2016): Mitral valve insufficiency, unspecified etiology Longstanding persistent atrial fibrillation 11/08/2015 12/22/2020 Overview (10/04/2016): Paroxysmal atrial fibrillation Encounters Date Type Department Care Team Description 04/05/2025 8:00 AM CDT Office Visit [facility] [address] [place] [address] Obed Stevens MD Non-rheumatic mitral regurgitation (Primary Dx); Mitral valve prolapse; History of cardioversion; Persistent atrial fibrillation (HCC); Atypical atrial flutter (HCC); Chronic anticoagulation 02/25/2025 Telephone [facility] [address] [place] [address] Obed Stevens MD from Last 3 Months Surgical History Surgery Date Site/Laterality Comments VASECTOMY 1995 Medical History Medical History Date Comments Hx Other Medical Fx L. metatarsa l. Hx Other Medical Ulcer 30 yrs ag o Hx Other Medical PAF Paroxysmal atrial fibrillation (HCC) PAF; Comments: Ro 07/07/2014 - Ulcerative lesion Ulcer; Comment s: Ro 07/07/2014 - Family History Medical History Relation Name Comments Cancer Father BLACK REEVES Lung cancer Father BLACK REEVES Cancer, lung; C ause of : Cancer, lung/Cancer, lung; Cause of : Cancer, lung Arthritis Mother SAMANTHA REEVES Hypertension Mother SAMANTHA REEVES Stroke Mother SAMANTHA REEVES Stroke; Cause of : Stroke/Stroke; Cause of : Stroke Relation Name Status Comments Father BLACK REEVES Mother SAMANTHA REEVES 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 Tobacco Use Types Packs/Day Years Used Date Smoking Tobacco: Former Cigarettes 0.5 7.6 0 11/29/1970 - 1978 Smokeless Tobacco: Never Tobacco Cessation:Counseling Given: Not Answered Alcohol Use Standard Drinks/Week Comments Yes 3 (1 standard drink = 0.6 oz pur e alcohol) socially Sex and Gender Information Value Date Recorded Sex Assigned at Not on file Legal Sex Male 9:16 AM FAILURE ANALYSIS TECHNICIAN Gender Identity Male 05/07/2020 10:56 AM FAILURE ANALYSIS TECHNICIAN Sexual Orientation Straight 09/30/2019 4: 35 PM CDT Last Filed Vital Signs Vital Sign Reading Time Taken Comments Blood Pressure 94/56 04/05/2025 8:07 AM CDT Pulse 67 04/05/2025 8:07 AM CDT Temperature 36.7 C (98.1 F) 04/06/2020 7:47 AM CDT Respiratory Rate 18 04/26/2022 8:27 AM CDT Oxygen Saturation 98% 04/05/2025 8:07 AM CDT Inhaled Oxygen Concentration - - Weight 87.5 kg (193 lb) 04/05/2025 8:07 AM CDT Height 185.4 cm (6' 1) 04/05/2025 8:07 AM CDT Body Mass Index 25.46 04/05/2025 8:07 AM CDT Plan of Treatment Health Maintenance Due Date Last Done Comments Colon Cancer Screening-Colonoscopy 1950 Depression Screening 1950 Hepatitis C Screening 1950 Hepatitis B Screening 1970 Pneumococcal vaccine 65+ (1 of 2 - PCV) 1971 Well Visit 65+ 2017 Zoster Vaccine (3 of 3) 08/13/2019 06/18/20 19, 03/18/2019, 09/18/2016 Fall Risk Assessment 04/06/2021 04/06/2020 Influenza Vaccine (#1) 2025 9, 04/08/2018, 06/04/2017, Additional history exists DTaP/Tdap/Td Vaccine (2 - Td or Tdap) 04/22/2030 04/22/2020 Prostate Cancer Screening-PSA Discontinued 04/06/2020 Abdominal Aortic Aneurysm (A AA) Screen Completed 02/14/2025 Medical Devices Implanted Type Area Commodity Loan Clerk Device Identifier Shelf Expiration Date Model / Serial / Lot [employer] [id number] System 6-12fr Mvp Venous Closure Vascade - [id number] - [id number] Implanted:Qty: 1 on 08/21/2019 by Hakan Mendez MD at [facility] Left: Vein [employer] 06/12/2021 800-612C- 10U / [id number] / [id number] 12A [employer] [id number] System 6-12fr Mvp Venous Closure Vascade - [id number] - [id number] Implanted:Qty: 1 on 08/21/2019 by Hakan Mendez MD at [facility] Right: Vein [employer] 06/12/2021 800-612C- 10U / [id number] 12A / [id number] 12A [employer] [id number] System 6-12fr Mvp Venous Closure Vascade - [id number] - [id number] Implanted:Qty: 1 on 08/21/2019 by Hakan Mendez MD at [facility] Left: Vein [employer] 06/12/2021 800-612C- 10U / [id number] / [id number] 12A [employer] [id number] Vascade 6/7fr Bioabsorbable Vascular System Compression Collagen - [id number] - [id number] Implanted:Qty: 1 on 08/21/2019 by Hakan Mendez MD at [facility] Right: Vein [employer] 04/08/2021 700-580I- 05U / [id number] / [id number] 09A [employer] [id number] Vascade 6/7fr Bioabsorbable Vascular System Compression Collagen - [id number] - [id number] Implanted:Qty: 1 on 04/06/2020 by Hakan Mendez MD at [facility] [employer] 11/24/2021 700-580I- 05U / [id number] 01A / [id number] 01A [employer] [id number] System 6-12fr Mvp Venous Closure Vascade - [id number] - [id number] Implanted:Qty: 1 on 04/06/2020 by Hakan Mendez MD at [facility] [employer] 02/08/2022 800-612C- 10U / [id number] 11A / [id number] 11A [employer] [id number] System 6-12fr Mvp Venous Closure Vascade - [id number] - [id number] Implanted:Qty: 1 on 04/06/2020 by Hakan Mendez MD at [facility] [employer] 02/08/2022 800-612C- 10U / [id number] 11A / [id number] 11A [employer] [id number] Device Closure Vascade Od5 Fr Femoral Artery - [id number] - [id number] Implanted:Qty: 1 on 04/06/2020 by Hakan Mendez MD at [facility] [employer] 12/16/2021 700-500DX -05U / [id number] 609A / [id number] Procedures Procedure Name Priority Date/Time Associated Diagnosis Comments PSA SCREEN STAT 04/06/2020 7:08 AM CDT from Last 3 Months or Most Recently Relevant to Health Maintenance Results * PSA screen (04/06/2020 7:08 AM CDT) PSA-Total 1.76 <=5.40 ng/mL [facility] Comment: Interpretive Data AGE SEX REFERENCE INTERVAL 0 minutes-150 years Female None 0 minutes-49 years Male None 50-59 years Male 0-3.90 60-69 years Male 0-5.40 70-79 years Male 0-6.20 80-150 years Male 0-6.20 Current interpretive data last revised 2018. Blood specimen (specimen) 04/06/2020 7:08 AM CDT 04/06/2020 7:24 AM CDT Narrative [facility] - 04/06/2020 7:59 AM CDT Serum preferred sample; testing performed on plasma. For serial testing, please interpret accordingly. us Hakan Mendez MD LAB BLOOD ORDERABLES nal Result [facility] [address] Department [place] [address] from Last 3 Months or Most Recently Relevant to Health Maintenance Insurance MEDICARE [employer] SENIOR SUPPLEMENT MEDICARE Advance Directives For more information, please contact: [phone] Documents on File Type Date Recorded Patient Landcare Facilitator Expl anation ADVANCE DIRECTIVE 01/04/2020 2:18 PM ADVANCE DIRECTIVE 08/24/2019 5:03 PM * Full Code (Latest Code Status on File) Date Activated Date Inactivated Comments 08/21/2019 6:29 PM 08/22/2019 2:21 PM Care Teams Game Protector Relationship Specialty Start Date End Date Dominick Reid DO [address] [place] [address] PCP - General Internal Medicine 04/05/25
--- OUTSIDE RECORDS SUMMARY | 2025-05-12 08:58 | XMS_ITS | Encounter Summary ---
Author Organization [facility] Address [address] [place] [address] Care Team Providers Care Rivet Tester Name Role Phone Unavailable Primary Care Provider Unavailabl e Encounter Details Date Type Department Care Team (Late st Contact Info) Description 12/16/2023 Lab Requisition [facility] - DermPath Lab [address] [place] [id number] Cristian Mei MD [address] [place] [address] 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 Tobacco Use Types Packs/Day Years Used Date Smoking Tobacco: Never Assessed Sex and Gender Information Value Date Recorded Sex Assigned at Not on file Legal Sex Male 6:[address] MAN Gender Identity Not on file Sexual Orientation Not on file documented as of this encounter Plan of Treatment Not on file documented as of this encounter Procedures Procedure Name Priority Date/Time Associated Diagnosis Comments DERMATOPATHOLOGY Routine 12/11/2023 3:33 AM CDT documented in this encounter Results * DERMATOPATHOLOGY (12/11/2023 3:33 AM CDT) Case Report Dermatopathology Report Case: [id number] Authorizing Provider: Cristian Mei MD Collected: 12/11/2023 03:33 AM Ordering Location: [facility] - Received: 12/16/2023 07:12 AM DermPath Lab Pathologist: Julia Cox MD Specimen: Skin, right cheek 1:58 PM CDT DERMATOPATHOLOGY LABORATORY Final Diagnosis Specimen A. SKIN, right cheek: SEBORRHEIC KERATOSIS, IRRITATED AND INFLAMED; SUPERFICIAL PORTIONS OF (L82.0) 1:58 PM CDT DERMATOPATHOLOGY LABORATORY at 1358 CDT Clinical History R/O BCC vs SCC vs ISK 4 1:58 PM CDT DERMATOPATHOLOGY LABORATORY Gross Description Specimen A: Received is one formalin filled container labeled with the patient's name and designated right cheek. The specimen consists of a shave biopsy measuring 8x6x2,6x5x1 mm. Jar 0. 4 1:58 PM CDT DERMATOPATHOLOGY LABORATORY Microscopic Description Specimen A. SKIN, right cheek: Sections show acanthosis, papillomatosis, hyperkeratosis, and squamous eddies. There is a lymphohistiocytic infiltrate within the papillary dermis. 4 1:58 PM CDT DERMATOPATHOLOGY LABORATORY Disclaimer An external and internal positive and negative controls are appropriate for the histochemical, immunohistochemical and immunofluorescence stain(s) in this case (if any), except where stated explicitly. The performance characteristics of the stain(s) cited in this report were developed and its performance characteristic determined by the Dermatopathology Laboratory at [facility], directed by Dr. Justin Gaona. These tests need not be, and therefore are not, approved by the [place] Food and Drug Administration. The tests are used for clinical purposes. Billing Codes Specimen Charges Stain Charges 74104 1 4 1:58 PM CDT DERMATOPATHOLOGY LABORATORY Embedded Images 4 1:58 PM CDT DERMATOPATHOLOGY LABORATORY Pathology/Cytolo gy TISSUE SPECIMEN FROM SKIN / Unknown 12/11/2023 3:33 AM CDT 12/16/2023 7:12 AM CDT Cristian Mei MD LAB - PATHOLOGY/CYTOLOGY ORD ERABLES Final Result DERMATOPATHOLOGY LABORATORY [facility] - Department of Dermatology [address] [place] [address], [facility] [phone] documented in this encounter Visit Diagnoses Not on filedocumented in this encounter
--- OUTSIDE RECORDS SUMMARY | 2025-05-12 08:58 | XMS_ITS | Clinical Summary ---
Author Organization [facility] Address [address], [address] [address] Phone Care Team Providers Care Quill Buncher And Sorter Name Role Phone Orlando Ortiz MD Primary Care Provider [phone] Allergies No known active allergies Medications tamsulosin (FLOMAX) 0.4 MG Capsule Take 0.4 mg by mouth daily. Active SOTALOL HCL PO Take 40 mg by mouth 2 times daily. Active aspirin 325 MG Tablet Take 325 mg by mouth daily. 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 Not on file Not on file Not on file Last Filed Vital Signs Vital Sign Reading Time Taken Comments Blood Pressure 125/68 06/10/2015 10:18 AM DRYING OVEN TENDER Pulse - - Temperature 36 C (96.8 F) 06/10/2015 10:18 AM DRYING OVEN TENDER Respiratory Rate 14 06/10/2015 10:18 AM DRYING OVEN TENDER Oxygen Saturation 100% 06/10/2015 10:18 AM DRYING OVEN TENDER Inhaled Oxygen Concentration - - Weight 88.5 kg (195 lb) 06/06/2015 1:00 PM DRYING OVEN TENDER Height 185.4 cm (6' 1) 06/06/2015 1:00 PM DRYING OVEN TENDER Body Mass Index 25.73 06/06/2015 1:00 PM DRYING OVEN TENDER Plan of Treatment Health Maintenance Due Date Last Done Comments Hepatitis C Virus (HCV) Screening 1950 TdaP Immunization 1950 Cologuard 1997 Immunochemical Fecal Occult Blood 1997 Pneumococcal Immunization (5 0+ years) (1 of 1 - PCV) 2002 Zoster Immunization (1 of 2) 2002 Influenza Immunization (#1) 2025 SARS-COV-2 Immunization ( - 2024- season) 2025 Respiratory Syncytial Virus (RSV) Immunization (Adult) (1 - 1-dose 75+ series) 2027 Colonoscopy 10/06/2030 10/06/2020, 06/10/2015 Colorectal Cancer Screening 10/06/2030 Hepatitis B Immunization Aged Out No longer eligible based on patient's age to complete this topic Human Papillomavirus (HPV) Immunization Aged Out No longer eligible b ased on patient's age to complete this topic Meningococcal Immunization (ACWY) Aged Out No longer eligible b ased on patient's age to complete this topic Rotavirus Immunization Aged Out No lo nger eligible based on patient's age to complete this topic Procedures Procedure Name Priority Date/Time Associated Diagnosis Comments COLONOSCOPY Routine 10/06/2020 from Last 3 Months or Most Recently Relevant to Health Maintenance Results * COLONOSCOPY (10/06/2020) Sunil Hopkins DO PROCEDURE/MINOR SURGICAL ORDERA BLES Final Result from Last 3 Months or Most Recently Relevant to Health Maintenance Insurance MEDICARE Care Teams Quill Buncher And Sorter Relationship Specialty Start Date End Date Orlando Ortiz MD [address], [address] [place] [address] PCP - General Internal Medicine 08/10/20
--- OUTSIDE RECORDS SUMMARY | 2025-05-12 08:58 | XMS_ITS | Encounter Summary ---
Author Organization [facility] Address [address] [address] Care Team Providers Care Warehouse Shipping Associate Name Role Phone Rush Blackburn MD Primary Care Provider [phone] Orlando Ortiz MD Primary Care Provider [phone] Nicholas Strong NP Primary Care Provider [phone] Dmoinick Reid DO Primary Care Provider [phone] Encounter Details Date Type Department Care Team (Late st Contact Info) Description 07/19/2016 Orders Only Arrhythmia Center Provider, MD Av [address] [place] [id number] 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 Tobacco Use Types Packs/Day Years Used Date Smoking Tobacco: Never Alcohol Use Standard Drinks/Week Comments No 0 (1 standard drink = 0.6 oz pur e alcohol) Sex and Gender Information Value Date Recorded Sex Assigned at Not on file 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 Historical Provider [facility] Final Result documented in this encounter Visit Diagnoses Not on filedocumented in this encounter Care Teams Warehouse Shipping Associate Relationship Specialty Start Date End Date Rush Blackburn MD PCP - General 03/24/15 12/04/18 Orlando Ortiz MD [address] [address] PCP - General Internal Medicine 12/05/18 08/13/23 Nicholas Strong NP [address] [address] PCP - General Nurse Practitioner 08/14/23 04/04/25 Dominick Reid DO [address] [place] [address] PCP - General Internal Medicine 04/05/25 documented as of this encounter
[2025-05-12 10:04] LABS: Alanine Aminotransferase 23 U/L (6-50); Albumin Level 4.1 g/dL (3.5-5.1); Alkaline Phosphatase 41 U/L (38-126); Amylase 97 U/L (30-110); Aspartate Amino Transferase 30 U/L (17-59); Bilirubin,Total 0.5 mg/dL (0.2-1.3); Lipase 74 U/L (23-300); Total Protein 7.6 g/dL (6.3-8.2)
== END 2025-05-12 08:42 | disposition home or self-care (01) ==
PROVIDERS: PCP Nurse Practitioner; Visit Provider Surgery
DX: Z01.812 Encounter for preprocedural laboratory examination (principal); K80.20 Calculus of gallbladder without cholecystitis without obstruction
CPT/HCPCS: 36415; 80076; 82150; 83690

== ENCOUNTER 2025-05-17 01:25 | Day surgery (SDC) | payer MEDICARE, SELFPAY ==
[2025-05-05 13:38] VITALS: BMI 26.4
--- NOTE | 2025-05-05 13:49 | PC.NURSE ---
[facility] has started construction of its new state of the art ER which will open Spring 2026. With this, we anticipate parking may be a challenge for some our surgical patients and families. Parking spaces are limited but are available for all Surgical, obstetrics, and ER patients sharing this lot. If you arrive and find you are having a hard time finding a parking space, please note that we understand the challenges, please drive around the hospital and park near Hospital Entrance 1. When you enter this entrance, you can ask a volunteer to direct or take you back to the surgical waiting area to check in. We appreciate everyone?s understanding of these expected challenges while we build for your future. Report to the Outpatient Waiting Room, entrance under the green pavilion located off [address], at time __1130am on date ___05/17/25____. Planned Procedure Time: _1:30pm .? Time changes happen often and if your time is changed the preop area will call you the afternoon before. - You and your visitor will be asked to self-screen and do not enter if you have any COVID symptoms. Please call surgeon if you need to reschedule. - A mask is optional within the hospital at this time. Patients may have clear liquids (water, carbonated beverages, clear teas, apple juice) until 3 hours prior to surgery with a maximum of 20 ounces. - No food from midnight until time of surgery and no smoking, or chewing tobacco (or any form of nicotine). No chewing gum, candy or mints.(10:30am) Take only the following medications with a SIP of water on the morning of surgery: Metoprolol DO NOT STOP ANY OF YOUR OTHER PRESCRIPTION MEDICATIONS PRIOR TO SURGERY EXCEPT THE FOLLOWING Hold all vitamins and supplements for 3 days per anesthesiologist. Medications to discontinue per physician HOLD the Xarelto for [address] Chaudhari Date to take last dose 05/13/25 Please no make-up, nail northern irish, hairspray, perfume, deodorant, or body powder the day of surgery.? No jewelry (including any body piercings) or valuables the day of surgery, leave them at home.? Please take a shower or bath the night before, or the morning of, surgery with an antibacterial soap.?Gold Dial Soap or Scrub Hibicleanse if ordered by . Wear comfortable, loose fitting clothing. - Jewelry must be removed prior to entering the operating room.? Rings and piercings that are not removed may be cut off. - The hospital will not accept responsibility for valuables.? - Please leave all valuables, including medications, at home the day of surgery. If you are going home after surgery, a licensed class b driver must drive you home.? - NO public transportation without another adult if you receive anesthesia. - We recommend that an adult stay with you for 24 hours following discharge. - We also recommend that you do not drive, make important decision, drink alcoholic beverages, or take any drugs that were not prescribed by your health care provider for at least 24 hours after your discharge time. Follow any additional instructions given to you from your surgeon. Telephone instructions given to __Patient and asked if any additional questions and then verbalized understanding. Patient advised to call surgeon office or pre surgery nurse liaison [phone] if any additional questions.
[2025-05-17] VITALS (7 sets, daily range): BP systolic 100–125; BP diastolic 51–89; PULSE 65–83; RESP 12–20; TEMP 36.1; O2SAT 99–100; BMI 26.3
[2025-05-17] MEDS: ACETAMINOPHEN 500 MG TABLET 1000 MG PO (12:00)
[2025-05-17] MEDS: LACTATED RINGERS 1,000 ML 30 ML IV CONT ×2 (12:00→14:23)
[2025-05-17] MEDS: KETOROLAC 15 MG/ML VIAL (*BKC) IV PUSH (12:00)
--- NOTE | 2025-05-17 13:06 | WPDHPUPDATE1 ---
History and Physical Update Update Date/Time: 05/17/25 13:06 History and Physical has been reviewed, including an updated exam of the patient. There are NO changes in the patient's condition. Risks, benefits, and alternatives have been discussed and questions answered. Patient agrees to proceed with procedure.
--- NOTE | 2025-05-17 13:13 | WPDANESEPPF ---
Anes - Initial Pre Proc Eval Procedure: Operation Date: 05/17/25 13:30 Proposed Procedures p Laparoscopic Cholecystectomy, Possible Open - Marcio Chaudhari DO Date/Time: 05/17/25 13:13 Surgeon: Marcio Chaudhari DO Pre Op Diagnosis: Sym Cholelithiasis Patient Data Age: 74 Gender: M Height: 1.83 m Weight: 87.95 kg Last Vital Signs Temp 97 F L 05/17/25 12:53 Pulse 65 05/17/25 12:53 BP 117/63 05/17/25 12:53 Pulse Ox 100 05/17/25 12:53 O2 Del Method Room Air 05/17/25 12:53 Allergies Allergy/AdvReac Type Severity Reaction Status Date / Time No Known Allergies Allergy Verified 05/05/25 13:29 Home Medications ?Medication ?Instructions ?Recorded ?Confirmed ?Type metoprolol tartrate 50 mg tablet 75 mg PO Q12H 05/05/25 05/17/25 History rivaroxaban 20 mg tablet (Xarelto) 20 mg PO QPM 05/05/25 05/17/25 History tamsulosin 0.4 mg capsule 0.8 mg PO Q24H prostate 05/05/25 05/05/25 History Patient hx anesthesia problems: none Family hx anesthesia problems: none Results Review: All pre-operative results and documents have been reviewed as part of the pre-operative evaluation. 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 Smoking packs per day: 1 Smoking cigarettes per day: 20.0 Years smoked: 7 Smoking pack-years: 7.00 Smoking status: Former smoker Tobacco type: cigarettes Second hand tobacco smoke exposure: No Smoking end date: 07/01/78 Alcohol intake: current Drinks per week: 8 Alcohol use details: SOCIAL Substance use: never Substance use type: does not use Do You Feel Safe in your Home?: Yes Lack of Transportation: No Lack of Food: Never True Current Housing: I Have Housing Concerned About Future Housing: No Difficulty Paying Gas/Electric Bills: No Difficulty Paying for Meds: No Currently Unemployed: No Education: Master's Degree or Higher Difficulty w/ Childcare or Family Care: No Living arrangements: with family Additional living arrangements comments: Occupation/Education: occupation 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 Gender identity (if verbalized by the patient): Male Sexual Orientation (if Verbalized by the Patient): Straight or Heterosexual Spiritual care concerns: No Agree to blood products: Yes Anes - Eval Final PreProcedure Day of Procedure 05/17/25 13:13 Patient weight: overweight Lungs: normal air movement Airway: Mallampati scale class II Neurological: alert and oriented Last oral intake: >/= 8 hours ASA classification: II Emergent: no Anesthetic plan: proceed Anesthesia type and monitoring: general ETT and standard monitoring Results Review: All pre-operative results and documents have been reviewed as part of the pre-operative evaluation. Hx of afib/flutter, s/p ablation 2020 w success, on b obdulia. Long time ex smoker. Pt can walk 1 fos, no cp or sob. Informed Consent: The patient's anesthetic plan and its attendant risks and benefits were discussed with the patient/family/POA. Questions were solicited and answers provided to the satisfaction of the patient/family/POA.
[2025-05-17] MEDS: ceFAZolin 2 GM in SODIUM CHLORIDE 0.9% IV 50 ML 100 ML IVPB (13:35)
[2025-05-17] MEDS: BUPIVACAINE/EPINEPHRINE 0.5% 30 ML VIAL INFILTRATE (13:48)
--- NOTE | 2025-05-17 14:00 | S_PTH ---
PATIENT: Chris Reeves LOC: [facility] U#:[id number] AGE/SX: 74/M ROOM: RE05/17/[address]: Marcio Chaudhari DO : 1950 BED: DIS: 05/17/2025 SPEC #: [id number] RECD: 05/18/25 07:29 STATUS: ARIAS REQ #: [id number] SHAHRIAR: 05/17/25 14:[address]: Marcio Chaudhari DEPT: [facility] Surgical RECD BY: Betty Turner ENTERED: 05/18/25 07:29 SP TYPE: Surgical OTHR DR: Nicholas Strong APRN Tissues: A - Gallbladder Procedures: Hematoxylin and Eosin Stain Gross and Microscopic Level 3
--- NOTE | 2025-05-17 14:22 | W.PM.PROC2 ---
Procedure Note - Detailed Date of Procedure 05/17/25 Pre-op Diagnosis Symptomatic cholelithiasis Post-op Diagnosis Same Procedure Performed Laparoscopic cholecystectomy Surgeon Marcio Chaudhari, DO Anesthesia General and Local (0.5% bupivacaine) Indications This is a 74-year-old man who presents with intermittent abdominal pain that started about 2 months ago. He had a severe episode while he was out of town and had gone to the emergency department. He had an ultrasound that was ordered by his PCP in follow-up in this showed evidence of cholelithiasis. He continues to have some mild pains ever since. Discussions were made with the patient about treatment options and decision was made to proceed with laparoscopic cholecystectomy, possible open. Findings Laparoscopic cholecystectomy was performed. The gallbladder appeared distended and elongated. There were multiple large gallstones within the gallbladder that were taking up most of the lumen of the gallbladder. The cystic duct appeared normal in size. No other intra-abdominal abnormalities were noted. The gallbladder was removed and sent to the lab for pathology. Description of Procedure Procedure as well as risks, benefits, and alternatives were discussed with patient. Written consent was obtained and placed in chart prior to procedure. The patient was brought back to surgical suite. Patient was placed in supine position on operating table. Time-out was done to confirm patient and procedure. Patient was then intubated by the anesthesia department. Abdomen was prepped and draped in sterile fashion using chlorhexidine prep. 0.5% bupivacaine with epinephrine was infiltrated at each site of incision. An 11 millimeter vertical incision was made at the inferior portion of the umbilicus using a 15 blade scalpel. Blunt dissection was carried down to the linea alba. The linea alba was then incised using a 15 blade scalpel. The peritoneum was then bluntly entered. An 11 millimeter trocar was inserted and carbon dioxide insufflation was used to create a pneumoperitoneum. The camera was inserted and the abdomen was inspected. The patient was placed in reverse Trendelenberg position and rotated slightly to the left. A 5 millimeter incision was made in the epigastric region, and a 5 millimeter trocar was inserted under direct visualization. Two 5 millimeter incisions were made in the right upper quadrant, and two 5 millimeter trocars were inserted under direct visualization. The gallbladder was identified and grasped at the fundus and retracted superiorly. It was then grasped at the infundibulum retracted laterally. Careful dissection around the neck of the gallbladder was performed using blunt dissection with a [place] grasper and hook electrocautery. The cystic duct was identified, and a window was created behind it. The cystic artery was also identified and a window was created behind it. The critical view of safety was identified, visualizing the cystic duct running directly into the neck of the gallbladder, and the cystic artery running directly into the wall of the gallbladder. A 5 millimeter clip production line solderer was then used to place 2 clips proximally and 1 clip distally on both the cystic duct and cystic artery. They were then both transected using endoscopic scissors. Once safely away from the fay hepatitis, the gallbladder was dissected free from the liver bed using hook electrocautery. Hemostasis was achieved along the way. The gallbladder was removed completely and then removed through the umbilical port. The liver bed was then inspected. Hemostasis appeared adequate, and our clips appeared secure. The area was gently irrigated with sterile saline. No other abnormalities were seen. The patient was flattened out in bed, and 1 final inspection was made around the abdominal cavity. The ports were then removed under direct visualization, the camera was removed, and the pneumoperitoneum was released. The fascia of the umbilical incision was approximated using an 0 Vicryl [id number] suture. The skin of the incisions was approximated using 4-0 Monocryl subcuticular sutures. Exofin glue was applied on top. The patient was then awakened from anesthesia, extubated, and transferred to recovery. Urine Output 300 Pathology Yes (Gallbladder) Complications No immediate complications Condition Stable Disposition Same day [facility] Billing Surgery - Charge Forward: Surgery Billing
== END 2025-05-17 15:59 | disposition home or self-care (01) ==
PROVIDERS: PCP Nurse Practitioner; Visit Provider Surgery
PROC: 0FT44ZZ Resection of Gallbladder, Percutaneous Endoscopic Approach (ICD-10-PCS; CPT 47562; principal; 2025-05-17 13:30)
DX: K80.10 Calculus of gallbladder with chronic cholecystitis without obstruction (principal); I48.0 Paroxysmal atrial fibrillation; Z79.01 Long term (current) use of anticoagulants; N40.0 Benign prostatic hyperplasia without lower urinary tract symptoms; Z87.891 Personal history of nicotine dependence
CPT/HCPCS: 47562; 88304; J0690; A9270; J1100; J1885; J2250; J3010; J7030; J7120